=== PATIENT | female | born 1975 | race Caucasian/White ===

== ENCOUNTER 2019-04-27 03:40 | Emergency (ER) | payer MEDICAID ==
[~2019-04-27] VITALS: Ht 172.7 cm; Wt 91.0 kg
[2019-04-27] MEDS ORDERED: CEFTRIAXONE SODIUM 1 G/VIAL IM ONE (07:00)
[2019-04-27] MEDS ORDERED: LIDOCAINE HCL/PF 1% 10 MG/ML 5ML VIAL IJ NR (07:31)
[2019-04-27 08:00] VITALS: BP 160/2
== END 2019-04-27 08:20 | disposition home or self-care (01) ==
LOC: ER 03:40
DX: L03.116 Cellulitis of left lower limb (principal); E11.9 Type 2 diabetes mellitus without complications; Z91.19 Patient's noncompliance with other medical treatment and regimen; Z88.1 Allergy status to other antibiotic agents
CPT/HCPCS: 81025; 82962; 96372; 99283; J0696; J3490